=== PATIENT | female | born 1965 | race Caucasian/White ===

== ENCOUNTER 2017-12-20 14:45 | Emergency (ER) | payer OTHER ==
[2017-12-20] MEDS ORDERED: diPHENhydraMINE IV* 50 MG/ML 1 ml VIAL (BENADRYL) IV ONE (15:19)
[2017-12-20] MEDS ORDERED: Metoclopramide IV* 5 MG/ML 2 ML VIAL IV ONE (15:19)
[2017-12-20] MEDS ORDERED: NS 0.9% 1000 ML* 1,000 ML IV ONE (15:19)
--- NOTE | 2017-12-20 16:06 | RAD ---
INDICATION: Headache and vomiting COMPARISON: None. TECHNIQUE: Contiguous axial sections of the brain were obtained from the skull base to the vertex without contrast. FINDINGS: The ventricles, cisterns and sulci are within normal limits. The gaitan-white matter differentiation is adequately maintained and there is no sulcal effacement. No significant focal abnormality or mass effect is present. There is no evidence for intracranial hemorrhage. No significant focal osseous abnormality is present. The visualized portion of the paranasal sinuses appear clear. The mastoid air cells are well aerated bilaterally. IMPRESSION: Normal CT of the brain.
[2017-12-20] MEDS ORDERED: Ketorolac INJ* 30 MG/ML 1 ML VIAL IV PUSH ONE (16:38)
--- NOTE | 2017-12-20 16:47 | ED ---
Headache - HPI Summary HPI Summary: A 52 y/o female presents to ED c/o pulsing migraine. According to the patient, this morning she woke up with dizziness, nausea, vomiting, shakes and severe migraine. She noted that she has a history of migraines, however this one is different because she has never exhibited these symptoms with her typical migraines. Additionally, she is sensitive to light and feels like the top of her head is going to "pop off". She also has eye pain. Pt denies any chills, fevers, rashes, neck pain, or neck stiffness. To alleviate symptoms, she took Ibuprofen and a dose of Benadryl around 0900. Another dose of Benadryl was taken around 1130. The medication did her no good. She stated that she had a typical migraine last week, but it wasn't anything she wasn't use to. She noted no other known medical conditions. Denies any PMHx of DM and HTN. Last time she saw a neurologist was five years ago. - History Of Current Complaint Chief Complaint: EDHeadache Stated Complaint: MIGRAINE Time Seen by Provider: 12/20/17 15:08 Hx Obtained From: Patient Onset/Duration: Sudden Onset, Started hours ago - Morning, Still Present Initially Headache Was: "Worst Headache Ever" - 10/10, Initial Pain Scale(0-10) = - 10/10, Severe Currently Pain Is: Current Pain Scale(0-10)= - 10/10, Severe Timing: Constant Character: Throbbing - Pulsing Location of Headache: Other: - Top of head Aggravating Factor: Bright Lights Allevating Factors: Nothing Associated Signs And Symptoms: Dizziness, Nausea, Vomiting, Other (Noted In Comments) - Shakes. Negative for neck pain and stiffness - Allergies/Home Medications Allergies/Adverse Reactions: Allergies Allergy/AdvReac Type Severity Reaction Status Date / Time carisoprodol Allergy Intermediate See Comment Verified 12/20/17 15:41 tramadol Allergy Intermediate See Comment Verified 12/20/17 15:41 meperidine AdvReac Severe Hallucinati Verified 12/20/17 15:41 ons Home Medications: Home Medications Cholecalciferol (Vitamin D3) [Vitamin D3] 4,000 units PO DAILY 12/20/17 [ History Confirmed 12/20/17] Cyanocobalamin TAB* [Vitamin B12 TAB*] 500 mcg PO DAILY 12/20/17 [History Confirmed 12/20/17] PMH/Surg Hx/FS Hx/Imm Hx Endocrine/Hematology History: Denies: Hx Diabetes Cardiovascular History: Denies: Hx Congestive Heart Failure, Hx Hypertension - Cancer History Hx Chemotherapy: No Hx Radiation Therapy: No - Surgical History Surgery Procedure, Year, and Place: LAP CYSTECTOMY Infectious Disease History: No Infectious Disease History: Denies: Traveled Outside the [place] in Last 30 Days - Family History Known Family History: Positive: Other - Kidney, Prostate and Skin cancer Negative: Hypertension, Diabetes - Social History Alcohol Use: Occasionally Substance Use Type: Reports: None Smoking Status (MU): Former Smoker Review of Systems Negative: Fever Eyes: Other - POSITIVE: Eye pain Positive: Photophobia Positive: Vomiting, Nausea Neurological: Other - POSITIVE: Dizziness Positive: Headache - Severe migraine All Other Systems Reviewed And Are Negative: Yes Physical Exam - Summary Physical Exam Summary: GENERAL: Patient is a well developed and nourished female who is lying comfortable in the stretcher. Patient is not in any acute respiratory distress. HEAD AND FACE: Normocephalic EYES: PERRLA, EOMI x 2. EARS: Hearing grossly intact. MOUTH: Oropharynx within normal limits. NECK: Supple, trachea is midline, no adenopathy, no JVD, no carotid bruit. CHEST: Symmetric, no tenderness at palpation LUNGS: Clear to auscultation bilaterally. No wheezing or crackles. CVS: Regular rate and rhythm, S1 and S2 present, no murmurs or gallops appreciated. ABDOMEN: Soft, non-tender. Bowel sounds are normal. No abdominal abnormal pulsations. EXTREMITIES: Full ROM in all major joints, no edema, no cyanosis or clubbing. NEURO: Alert and oriented x 3. No acute neurological deficits. Speech is normal and follows commands. SKIN: Dry and warm Neuro exam extended: Cranial nerves II-XII grossly intact, no dysmetria finger to nose, nml heel to hardy GCS: 15 Triage Information Reviewed: Yes Vital Signs On Initial Exam: Initial Vitals Temp Pulse Resp BP Pulse Ox 98.2 F 68 16 124/87 99 12/20/17 14:47 12/20/17 14:47 12/20/17 14:47 12/20/17 14:47 12/20/17 14:47 Vital Signs Reviewed: Yes Diagnostics - Vital Signs Vital Signs Temp Pulse Resp BP Pulse Ox 12/20/17 14:47 98.2 F 68 16 124/87 99 - Laboratory Lab Statement: Any lab studies that have been ordered have been reviewed, and results considered in the medical decision making process. - CT BRAIN CT CT Interpretation: No Acute Changes CT Interpretation Completed By: Radiologist - Normal CT of the brain. ED physician reviewed this radiology report. Re-Evaluation - Re-Evaluation First Eval Re-Evaluation Time: 16:37 Change: Improved Comment: Mild improvements. Second Eval Re-Evaluation Time: 17:26 Change: Improved Comment: Patient has improved. Pt stated that she can go home and sleep it off. Headache Course/Dx - Course Course Of Treatment: A 52 y/o female presents to ED c/o pulsing migraine. According to the patient, this morning she woke up with dizziness, nausea, vomiting, shakes and severe migraine. She noted that she has a history of migraines, however this one is different because she has never exhibited these symptoms with her typical migraines. Additionally, she is sensitive to light and feels like the top of her head is going to "pop off". She also has eye pain. Pt denies any chills, fevers, rashes, neck pain, or neck stiffness. A Brain CT revealed normal CT of the brain. In the ED course, pt recieved Benadryl , Toradol, Reglan and IV fluids which improved her symptoms. During reevaluation , patient noted that she is feeling much better. Pt stated that she can go home and sleep it off. Patient will be discharged with a diagnosis of headache. Pt is to follow up with PCP in 2-3 days. Pt is agreeable with this plan. - Diagnoses Provider Diagnoses: Headache Discharge - Sign-Out/Discharge Documenting (check all that apply): Patient Departure - DISCHARGE - Discharge Plan Condition: Stable Disposition: HOME Prescriptions: diPHENhydraMINE PO* [Benadryl PO 25 MG TAB*] 25 mg PO TID PRN #24 tab PRN Reason: Headache/Pain Metoclopramide TAB* [Reglan TAB*] 10 mg PO Q8H #14 tab Patient Education Materials: Migraine Headache (ED) Referrals: Simin Daniels MD [Primary Care Provider] - 2 Days (FOLLOW UP WITH PRIMARY CARE IN 2-3 DAYS.) Additional Instructions: RETURN TO ED FOR ANY NEW OR WORSENING SYMPTOMS. - Billing Disposition and Condition Condition: STABLE Disposition: Home
[2017-12-20 17:57] VITALS: BP 119/79
== END 2017-12-20 17:57 | disposition home or self-care (01) ==
LOC: ED 14:45
DX: R51 Headache (principal); R42 Dizziness and giddiness; R11.2 Nausea with vomiting, unspecified; Z88.5 Allergy status to narcotic agent; Z88.8 Allergy status to other drugs, medicaments and biological substances; Z80.51 Family history of malignant neoplasm of kidney; Z80.42 Family history of malignant neoplasm of prostate; Z80.8 Family history of malignant neoplasm of other organs or systems; Z87.891 Personal history of nicotine dependence
CPT/HCPCS: 70450; 96374; 96375; 99282; J1200; J1885; J2765

== ENCOUNTER 2018-08-22 10:52 | Emergency (ER) | payer OTHER ==
[2018-08-22] MEDS ORDERED: NS 0.9% 1000 ML** 1,000 ML IV ONE (11:13)
[2018-08-22] MEDS ORDERED: diPHENhydraMINE IV* 50 MG/ML 1 ml VIAL (BENADRYL) IV ONE (11:13)
[2018-08-22] MEDS ORDERED: Metoclopramide IV* 5 MG/ML 2 ML VIAL IV ONE (11:13)
[2018-08-22] MEDS ORDERED: Ketorolac INJ* 30 MG/ML 1 ML VIAL IV ONE (11:13)
--- NOTE | 2018-08-22 11:20 | ED ---
Headache - HPI Summary HPI Summary: This patient is a 53 year old F presenting to [facility] with a chief complaint of a typical migraine headache upon waking at 0630 this morning. She reports taking Rizatriptan and Benadryl without relief. Reports persistent photophobia, nausea , and vomiting. Pain is rated 10/10 in severity upon triage. Patient denies fever. - History Of Current Complaint Chief Complaint: EDHeadache Stated Complaint: I HAVE A SEVERE MIGRAINE PER PT Time Seen by Provider: 08/22/18 11:13 Hx Obtained From: Patient Onset/Duration: Sudden Onset Currently Pain Is: Current Pain Scale(0-10)= - 9 Timing: Constant, Hours Character: Migraine Aggravating Factor: Bright Lights Allevating Factors: Nothing Associated Signs And Symptoms: Nausea, Vomiting Related History: Similar Episode/DX As: - migraine - Allergies/Home Medications Allergies/Adverse Reactions: Allergies Allergy/AdvReac Type Severity Reaction Status Date / Time carisoprodol Allergy Intermediate See Comment Verified 08/22/18 10:57 tramadol Allergy Intermediate See Comment Verified 08/22/18 10:57 meperidine AdvReac Severe Hallucinati Verified 08/22/18 10:57 ons Home Medications: Home Medications Gabapentin 1 cap PO TID 08/22/18 [History Confirmed 08/22/18] Rizatriptan Benzoate [Rizatriptan] 1 tab PO DAILY 08/22/18 [History Confirmed ] PMH/Surg Hx/FS Hx/Imm Hx Endocrine/Hematology History: Denies: Hx Diabetes Cardiovascular History: Denies: Hx Congestive Heart Failure, Hx Hypertension Neurological History: Reports: Hx Migraine - Cancer History Hx Chemotherapy: No Hx Radiation Therapy: No - Surgical History Surgery Procedure, Year, and Place: LAP CYSTECTOMY Infectious Disease History: No Infectious Disease History: Denies: Traveled Outside the [place] in Last 30 Days - Family History Known Family History: Positive: Other - Kidney, Prostate and Skin cancer Negative: Hypertension, Diabetes - Social History Alcohol Use: Occasionally Substance Use Type: Reports: None Smoking Status (MU): Former Smoker Review of Systems Negative: Fever Positive: Photophobia Positive: Vomiting, Nausea Positive: Headache All Other Systems Reviewed And Are Negative: Yes Physical Exam - Summary Physical Exam Summary: VITAL SIGNS: Reviewed. GENERAL: Patient is a well-developed and nourished female who is in distress secondary to pain. Patient is nauseous. Patient is not in any acute respiratory distress. HEAD AND FACE: No signs of trauma. No ecchymosis, hematomas or skull depressions. No sinus tenderness. EYES: PERRLA, EOMI x 2, No injected conjunctiva, no nystagmus. Photophobia. EARS: Hearing grossly intact. Ear canals and tympanic membranes are within normal limits. MOUTH: Oropharynx within normal limits. NECK: Supple, trachea is midline, no adenopathy, no JVD, no carotid bruit, no c- spine tenderness, neck with full ROM. CHEST: Symmetric, no tenderness at palpation LUNGS: Clear to auscultation bilaterally. No wheezing or crackles. CVS: Regular rate and rhythm, S1 and S2 present, no murmurs or gallops appreciated. ABDOMEN: Soft, non-tender. No signs of distention. No rebound no guarding, and no masses palpated. Bowel sounds are normal. EXTREMITIES: FROM in all major joints, no edema, no cyanosis or clubbing. NEURO: Alert and oriented x 3. No acute neurological deficits. Speech is normal and follows commands. SKIN: Dry and warm Triage Information Reviewed: Yes Vital Signs On Initial Exam: Initial Vitals Temp Pulse Resp BP Pulse Ox 97.5 F 71 16 142/88 98 08/22/18 10:53 08/22/18 10:53 08/22/18 10:53 08/22/18 10:53 08/22/18 10:53 Vital Signs Reviewed: Yes Diagnostics - Vital Signs Vital Signs Temp Pulse Resp BP Pulse Ox 08/22/18 10:53 97.5 F 71 16 142/88 98 - Laboratory Result Diagrams: 08/22/18 11:45 08/22/18 11:45 Lab Statement: Any lab studies that have been ordered have been reviewed, and results considered in the medical decision making process. Re-Evaluation - Re-Evaluation 1 Re-Evaluation Time: 12:25 Change: Improved - Pain has improved to 1-2/10. Headache Course/Dx - Course Assessment/Plan: This patient is a 53-year-old female who presents to the emergency department with chief complaint of having a migraine headache. The headache is similar to her migraine headaches. She took her chronic medications for the headaches without any relief of symptoms. Patient reports pain 10 out of 10 acid with nausea and vomiting. Blood work without any significant abnormality, except for glucose of 137. In the ED course the patient was given IV fluids, Benadryl, Toradol, and Reglan for the migraine headache. After these medications were given the patients symptoms have resolved. At this point the patient is asymptomatic. She reports that the pain is 1 out of 10 and she feels much more comfortable. At this point I discussed all the findings and test results with the patient. She was instructed to return to the emergency room immediately if any of the symptoms return or worsens. They understand and agree. Neurological exam before discharge : Patient is alert and oriented x 3. No acute neurological deficits. Patient vital signs are stable. Patient is to follow up with PCP in the next 2 3 days. They understand and agree. Plan of care was discussed with the patient and patient understands and agrees with the plan of care. All questions were answered at patient satisfaction. There were no further complaints or concerns. - Diagnoses Differential Diagnosis/HQI/PQRI: Migraine, Sinus Headache, Tension Headache Provider Diagnoses: Migraine headache Discharge - Sign-Out/Discharge Documenting (check all that apply): Patient Departure - discharge Patient Received Moderate/Deep Sedation with Procedure: No - Discharge Plan Condition: Stable Disposition: HOME Patient Education Materials: Migraine Headache (ED) Referrals: Siimn Daniels MD [Primary Care Provider] - 3 Days Additional Instructions: RETURN TO THE EMERGENCY DEPARTMENT FOR CHANGING OR WORSENING SYMPTOMS. - Billing Disposition and Condition Condition: STABLE Disposition: Home - Attestation Statements Document Initiated by Hoae: Yes Documenting Scribe: Jennifer Nieves Provider For Whom Lamont is Documenting (Include Credential): Onofre Alaniz Attestation: Jennifer Vasquez scribed for Onofre Peterson on 08/23/18 at 0733. Scribe Documentation Reviewed: Yes Provider Attestation: The documentation as recorded by the Jennifer alaniz accurately reflects the service I personally performed and the decisions made by Onofre gregory Status of Scribe Document: Viewed
[2018-08-22 11:52] LABS: ABS Basophils 0.1 10^3/ul (0-0.2); ABS Eosinophils 0 10^3/ul (0-0.6); ABS Monocytes 0.4 10^3/ul (0-0.8); ABS Neutrophils 5.6 10^3/ul (1.5-7.7); ABS Nucleated RBC 0 10^3/ul; Eosinophil % 0.7 %; Hematocrit 38 % (33-41); Hemoglobin 12.8 g/dL (12.0-16.0); Mean Corpuscular HGB Conc 34 g/dL (31-36); Mean Corpuscular Hemoglobin 32 pg (27-31); Mean Corpuscular Volume 94 fL (80-97); Mean Platelet Volume 8.2 fL (7.4-10.4); Nucleated Red Blood Cells % 0; Platelet Count 192 10^3/uL (150-450); Red Blood Count 4.03 10^6 /uL (3.70-4.87); Red Cell Distribution Width 13 % (10.5-15); White Blood Count 7.2 10^3/uL (3.5-10.8)
[2018-08-22 12:19] LABS: Albumin/Globulin Ratio 1.5 (1-3); BUN/Creatinine Ratio 14.9 (8-20); Calcium 9.2 mg/dL (8.6-10.3); EGFR African American 112.3 (>60); EGFR Non-African American 92.8 (>60); Globulin 2.6 g/dL (2-4); Potassium 4.2 mmol/L (3.5-5.0); Total Bilirubin 0.4 mg/dL (0.2-1.0); Total Protein 6.6 g/dL (6.4-8.9)
[2018-08-22 12:55] VITALS: BP 100/59
[2018-08-23 07:31] LABS: Erythrocyte Sed Rate 21 mm/Hr (0-30)
== END 2018-08-22 12:55 | disposition home or self-care (01) ==
LOC: ED 10:52
DX: G43.909 Migraine, unspecified, not intractable, without status migrainosus (principal); Z87.891 Personal history of nicotine dependence
CPT/HCPCS: 36415; 80053; 82375; 85025; 85652; 96361; 96374; 96375; 99282; J1200; J1885; J2765